=== PATIENT | male | born 1940 | race Caucasian/White ===

== ENCOUNTER 2017-10-22 14:09 | Emergency (ER) | payer MEDICARE ==
[2017-10-22 14:16] VITALS: BP 146/78
[2017-10-22] MEDS ORDERED: Eye Irrigation Solution 30 ML BOTTLE RIGHT EYE ONE (14:56)
[2017-10-22] MEDS ORDERED: Fluorescein Sod TOPICAL 0.6* 0.6 MG TEST OPHTHALMIC ONE (14:56)
--- NOTE | 2017-10-22 15:01 | UC ---
Eye Complaint HPI - HPI Summary HPI Summary: Woke today with R eye redness and soreness. Denies any known injury or FB, feels pain in the medial portion of eye. Lots of foul discharge. - History of Current Complaint Chief Complaint: UCEye Stated Complaint: EYE COMPLAINT Time Seen by Provider: 10/22/17 14:43 Hx Obtained From: Patient Onset/Duration: Gradual Onset Timing: Constant Severity Initially: Mild Severity Currently: Mild Pain Intensity: 5 Location of Injury: Conjunctiva Character: Dull, Throbbing, Foreign Body Sensation Aggravating Factor(s): Nothing Associated Signs And Symptoms: Positive: Drainage (Purulent) Related History: Glaucoma, Other - hx cateract surgeries - Allergies/Home Medications Allergies/Adverse Reactions: Allergies Allergy/AdvReac Type Severity Reaction Status Date / Time atenolol Allergy See Comment Verified 10/22/17 14:17 PMH/Surg Hx/FS Hx/Imm Hx Cardiovascular History: Hypertension - Surgical History Surgical History: Yes Surgery Procedure, Year, and Place: broken ankle LEFT REPAIR 2001-NO METAL. IN ANKLE LEFT 1995. CATARACTS BILATERAL EYES 09/2014-LASER TO REMOVE SCAR TISSUE AND 08/12/15. ANGIOPLASTY- NO CARDIAC STENTS - Family History Known Family History: Negative: Blood Disorder - Social History Occupation: Retired Lives: With Family Alcohol Use: Daily Alcohol Amount: 2-3 BEERS/NIGHT Substance Use Type: None Smoking Status (MU): Former Smoker Amount Used/How Often: 2 PPD X 25 YEARS Have You Smoked in the Last Year: No When Did the Patient Quit Smoking/Using Tobacco: 30 + YEARS AGO Review of Systems Constitutional: Negative Skin: Negative Eyes: Drainage, Eye Redness ENT: Negative Respiratory: Negative Cardiovascular: Negative Gastrointestinal: Negative Genitourinary: Negative Motor: Negative Neurovascular: Negative Musculoskeletal: Negative Neurological: Negative Psychological: Negative Is Patient Immunocompromised?: No All Other Systems Reviewed And Are Negative: Yes Physical Exam Triage Information Reviewed: Yes Appearance: Well-Appearing, Well-Nourished Vital Signs: Initial Vital Signs Temp 98.4 F 10/22/17 14:14 Pulse 98 10/22/17 14:14 Resp 18 10/22/17 14:14 BP 146/78 10/22/17 14:14 Pulse Ox 98 10/22/17 14:14 Vital Signs Reviewed: Yes Eye Exam: Other - PERRL Eyes: Positive: Conjunctiva Inflamed - R, Discharge - R - purulent, recurs after wiping away., Other: - Fluorescein dye negative for focal uptake in R eye ENT Exam: Normal ENT: Positive: Normal ENT inspection, Hearing grossly normal, Pharynx normal, Nasal drainage Dental Exam: Normal Neck exam: Normal Neck: Positive: Supple, Nontender, No Lymphadenopathy Respiratory Exam: Normal Respiratory: Positive: Chest non-tender, Lungs clear, Normal breath sounds, No respiratory distress, No accessory muscle use Cardiovascular Exam: Normal Cardiovascular: Positive: RRR, No Murmur Musculoskeletal Exam: Normal Neurological Exam: Normal Neurological: Positive: Alert Psychological Exam: Normal Skin Exam: Normal Eye Complaint Course/Dx - Differential Dx/Diagnosis Provider Diagnoses: R eye conjunctivitis Discharge - Sign-Out/Discharge Documenting (check all that apply): Discharge/Admit/Transfer - Discharge Plan Condition: Stable Disposition: HOME Prescriptions: Ciprofloxacin 0.3% OPTH.ROGER* [Cipro 0.3% Opth*] 2 drop RIGHT EYE Q4H #5 ml Patient Education Materials: Conjunctivitis (ED) Referrals: Catie Ingram MD [Primary Care Provider] - William Snell MD [Medical Doctor] - 4 Days Additional Instructions: I expect you to start to see improvement soon, and you should get better from day to day. If not, you will need to see your chef de partie for a recheck this week. - Billing Disposition and Condition Condition: STABLE Disposition: Home
== END 2017-10-22 15:20 | disposition home or self-care (01) ==
LOC: UCEAST 14:09
DX: H10.31 Unspecified acute conjunctivitis, right eye (principal); I10 Essential (primary) hypertension; Z88.8 Allergy status to other drugs, medicaments and biological substances; Z87.891 Personal history of nicotine dependence
CPT/HCPCS: 99212; G0463

== ENCOUNTER 2019-06-26 12:15 | Emergency (ER) | payer MEDICARE ==
--- OUTSIDE RECORDS SUMMARY | 2019-06-26 12:24 | XMS REPORT | Continuity of Care Document ---
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 Onset: 05/22/2013 Nuclear senile cataract William Snell M.D. Onset: 05/22/2013 Open-angle glaucoma William Snell M.D. Onset: 05/22/2013 Status Post Surgery William Snell M.D. Onset: 09/17/2014 Lens Replaced By Other Means Donovan Armendariz O.D. Onset: 09/26/2014 Tear film insufficiency Mihaela Levin O.D. Onset: 11/11/2014 Ulcerative blepharitis Mihaela Levin O.D. Onset: 11/11/2014 Primary open-angle glaucoma, mild stage Donovan Armendariz O.D. Onset: 2014 Keratoconjunctivitis sicca (excluding Sjogren Donovan Armendariz O.D. Onset: syndrome) Other secondary cataract, bilateral Donovan Armendariz O.D. Onset: 08/04/2015 Other secondary cataract, left eye William Snell M.D. Onset: 08/12/2015 Convalescence after surgery William Snell M.D. Onset: 08/27/2015 Excess skin of eyelid Donovan Armendariz O.D. Onset: 09/03/2015 Presence of intraocular lens Donovan Armendariz O.D. Onset: 09/03/2015 Bilateral primary open angle glaucoma William Snell M.D. Onset: 03/21/2016 Bilateral primary open angle glaucoma Donovan Ceballos, OD Onset: 04/28/2016 Keratoconjunctivitis sicca (excluding Sjogren Donovan Ceballos, OD Onset: 2018 syndrome) Social History Type Date Description Comments Sex Unknown ETOH Use Consumes 1-2 beers per day Tobacco Use Start: Unknown End: Unknown Patient is a former smoker Smoking Status Reviewed: 06/20/19 Patient is a former smoker Allergies, Adverse Reactions, Alerts Active Allergies Reaction Severity Comments Date Atenolol 05/22/2013 Brimonidine Tartrate 05/06/2019 Medications Active Medications SIG Qnty Indications Ordering Provider Date Latanoprost Place One Drop 7.5units Donovan Ceballos, OD 04/03/2018 0.005% Into Both Eyes Solution AT Bedtime Refresh Optive 1 drops both 30units Donovan Ceballos, OD 10/30/2017 Sensitive eyes tid OU 0.5-0.9% Solution Vitamin D William Snell, 05/22/2013 M.Beatris Aspir-[address] One A Day Vitamin Unknown Tablets Calcium Unknown Tablets Ramipril Unknown 2.5mg Capsules Bupropion HCL ER Unknown (XL) 300mg Tablets ER 24HR Fish Oil Unknown 500mg Capsules Vitamin B-12 Unknown Natural 500mcg Tablets Coq-10 Unknown 150mg Capsules History Medications Simbrinza one drop twice a 8ml Donovan Ceballos, OD 04/24/2019 - 1-0.2% day both eyes 05/06/2019 Suspension Restasis one drop twice 60units Donovan Ceballos, OD 02/11/2019 - 0.05% Emulsion per day both 04/17/2019 eyes Xiidra 1gtt both eyes 60units Donovan Ceballos, OD 01/08/2019 - 5% Solution twice a day 02/11/2019 Immunizations Description No Information Available Vital Signs Date Vital Result Comment 06/20/2019 9:23am Intraocular Pressure Right Eye 17 mmHg Intraocular Pressure Left Eye 19 mmHg 06/06/2019 11:26am Intraocular Pressure Right Eye 22 mmHg Intraocular Pressure Left Eye 21 mmHg Results Description No Information Available Procedures Date Code Description Status 06/20/2019 10608 Eye Exam Est Intermediate Completed 04/24/2019 08989 Visual Field Exam Extended, Unilateral Or Bilateral Completed 04/24/2019 40590 Eye Exam Est Intermediate Completed 04/17/2019 39714 Eye Exam Est Intermediate Completed 01/08/2019 77991 Fundus Photography W/Interpretation & Report Completed 01/08/2019 10425 Ophthalmoscopy Subsequent Completed 01/08/2019 92358 Refraction Completed 01/08/2019 11451 Eye Exam Est Comprehensive Completed Medical Devices Description No Information Available Encounters Type Date Location Provider Dx Diagnosis Office Visit 06/06/2019 Main Office Donovan Ceballos, OD H40.1131 Primary open-angle 11:15a glaucoma, bilateral, mild stage Office Visit 05/06/2019 Main Office Donovan Ceballos, OD H40.1131 Primary open-angle 3:00p glaucoma, bilateral, mild stage H04.123 Dry eye syndrome of bilateral lacrimal glands Office Visit 02/11/2019 9:30a Main Office Donovan Ceballos, Z96.1 Presence of OD intraocular lens H40.1131 Primary open-angle glaucoma, bilateral, mild stage H16.223 Keratoconjunct sicca, not specified as Sjogren's, bilateral Assessments Date Code Description Provider 06/20/2019 H40.1131 Primary open-angle glaucoma, bilateral, mild Donovan Ceballos, OD stage 06/06/2019 H40.1131 Primary open-angle glaucoma, bilateral, mild Donovan Ceballos, OD stage 05/06/2019 H40.1131 Primary open-angle glaucoma, bilateral, mild Donovan Ceballos, OD stage 05/06/2019 H04.123 Dry eye syndrome of bilateral lacrimal glands Donovan Ceballos, OD 04/24/2019 H40.1131 Primary open-angle glaucoma, bilateral, mild Donovan Ceballos, OD stage 04/17/2019 H16.223 Keratoconjunctivitis sicca, not specified as Donovan Ceballos, OD Sjogren's, bilateral 04/17/2019 H40.1131 Primary open-angle glaucoma, bilateral, mild Donovan Ceballos, OD stage 02/11/2019 Z96.1 Presence of intraocular lens Donovan Ceballos, OD 02/11/2019 H40.1131 Primary open-angle glaucoma, bilateral, mild Donovan Ceballos, OD stage 02/11/2019 H16.223 Keratoconjunctivitis sicca, not specified as Donovan Ceballos, OD Sjogren's, bilateral 01/08/2019 Z96.1 Presence of intraocular lens Donovan Ceballos, OD 01/08/2019 H04.123 Dry eye syndrome of bilateral lacrimal glands Donovan Ceballos, OD 01/08/2019 H43.813 Vitreous degeneration, bilateral Donovan Ceballos, OD 01/08/2019 H40.1131 Primary open-angle glaucoma, bilateral, mild Donovan Ceballos, OD stage Plan of Treatment Future Appointment(s):07/26/2019 10:45 am - Donovan Ceballos, ELIZABETH at [id number] - Donovan Ceballos ODH40.1131 Primary open-angle glaucoma, bilateral, mild stageFollow up:10/2019 nerve OCT, sooner PRN Functional Status Description No Information Available Mental Status Description No Information Available Referrals Description No Information Available
--- OUTSIDE RECORDS SUMMARY | 2019-06-26 12:24 | XMS REPORT | Continuity of Care Document ---
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 Medicine Problems Active Problems Provider Date Essential [...] is a former smoker Smoking Status Reviewed: 06/06/19 Patient is a former smoker Allergies, Adverse [...] Available Vital Signs Date Vital Result Comment 06/06/2019 11:26am Intraocular Pressure Right Eye 22 mmHg Intraocular Pressure Left Eye 21 mmHg 05/06/2019 3:10pm Intraocular Pressure Right Eye 25 mmHg Intraocular Pressure Left Eye 25 mmHg Results Description No Information Available Procedures Date Code Description Status 04/24/2019 09438 Visual Field Exam Extended, Unilateral Or Bilateral Completed 04/24/2019 06563 Eye Exam Est Intermediate Completed 04/17/2019 19053 Eye Exam Est Intermediate Completed 01/08/2019 46444 Fundus Photography W/Interpretation & Report Completed 01/08/2019 79923 Ophthalmoscopy Subsequent Completed 01/08/2019 00778 Refraction Completed 01/08/2019 80406 Eye Exam Est Comprehensive Completed Medical Devices [...] Sjogren's, bilateral Assessments Date Code Description Provider 06/06/2019 H40.1131 Primary open-angle glaucoma, bilateral, mild [...] am - Donovan Ceballos, EL[facility]ABETH at [id number] - Donovan Ceballos ODH40.1131 Primary open-angle glaucoma, bilateral, mild stage Functional Status Description No Information Available Mental Status Description No Information Available Referrals Description No Information Available
--- OUTSIDE RECORDS SUMMARY | 2019-06-26 12:24 | XMS REPORT | Continuity of Care Document ---
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 Onset: 05/22/2013 Nuclear senile cataract William [...] is a former smoker Smoking Status Reviewed: 05/06/19 Patient is a former smoker Allergies, Adverse [...] Available Vital Signs Date Vital Result Comment 05/06/2019 3:10pm Intraocular Pressure Right Eye 25 mmHg Intraocular Pressure Left Eye 25 mmHg 04/17/2019 3:23pm Intraocular Pressure Right Eye 23 mmHg Intraocular Pressure Left Eye 25 mmHg Results Description No Information Available Procedures Date Code Description Status 04/24/2019 22877 Visual Field Exam Extended, Unilateral Or Bilateral Completed 04/24/2019 25450 Eye Exam Est Intermediate Completed 04/17/2019 44940 Eye Exam Est Intermediate Completed 01/08/2019 85061 Fundus Photography W/Interpretation & Report Completed 01/08/2019 37407 Ophthalmoscopy Subsequent Completed 01/08/2019 25590 Refraction Completed 01/08/2019 12488 Eye Exam Est Comprehensive Completed Medical Devices Description No Information Available Encounters Type Date Location Provider Dx Diagnosis Office Visit 05/06/2019 Main Office Donovan Ceballos, OD H40.1131 Primary open-angle 3:00p glaucoma, bilateral, mild stage H04.123 Dry eye syndrome of bilateral lacrimal glands Office Visit 02/11/2019 9:30a Main Office Donovan Ceballos, Z96.1 Presence of OD intraocular lens H40.1131 Primary open-angle glaucoma, bilateral, mild stage H16.223 Keratoconjunct sicca, not specified as Sjogren's, bilateral Assessments Date Code Description Provider 05/06/2019 H40.1131 Primary open-angle glaucoma, bilateral, mild Donovan Ceballos, OD stage 05/06/2019 H04.123 Dry eye syndrome of bilateral lacrimal glands Donovan Ceballos, OD 04/24/2019 H40.1131 Primary open-angle glaucoma, bilateral, mild Donovan Ceballos, OD stage 04/17/2019 H16.223 Keratoconjunctivitis sicca, not specified as Donovan Tucker, OD Sjogren's, bilateral 04/17/2019 H40.1131 Primary open-angle [...] Ceballos, OD stage Plan of Treatment Future Appointment(s):06/06/2019 11:15 am - Donovan Ceballos, OD at [id number] 10:45 am - Donovan Ceballos, OD at [id number]/06/2019 - Donovan Ceballos ODH40.1131 Primary open-angle glaucoma, bilateral, mild fsmysG95.123 Dry eye syndrome of bilateral lacrimal glands Functional Status Description No Information Available Mental Status Description No Information Available Referrals Description No Information Available
[2019-06-26 12:42] VITALS: BP 174/72
--- NOTE | 2019-06-26 13:15 | UC ---
Cardiac HPI - HPI Summary HPI Summary: Pt is a 78 yo male presents to reporting sob with activity over last 2 days. Pt states has been remodeling a kitchen - states with sx gets sob. with walking , pt with left sided cp - no radiation. Pt states at present no complaint. Pt came for "reassurance" no current complaint.s no trauma, no radiation. states was nausea with pain earlier. no analgesia taken. Pt has not had recent stress test. + history of angioplasty several years ago. 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 reviewed this visit - History of Current Complaint Chief Complaint: UCChestPain Stated Complaint: SHORTNESS OF BREATH & CHEST PAIN Time Seen by Provider: 06/26/19 12:26 Hx Obtained From: Patient, Medical Records Pain Intensity: 0 - Allergy/Home Medications Allergies/Adverse Reactions: Allergies Allergy/AdvReac Type Severity Reaction Status Date / Time atenolol Allergy See Comment Verified 06/26/19 12:42 Home Medications: Home Medications Aspirin 81 mg CHEW TAB* 81 mg PO DAILY 06/25/12 [History Confirmed 06/26/19] Multivitamin [Multivitamins] 1 cap PO DAILY 06/25/12 [History Confirmed 06/26/19 ] Ramipril CAP* [Altace CAP*] 2.5 mg PO DAILY 09/09/14 [History Confirmed 06/26/19 ] [place]-3/Dha/Epa/Fish Oil [Fish Oil 1,000 mg Softgel] 1,200 unit PO BID 02/01/16 [History Confirmed 06/26/19] Dorzolamide 2% OPTH (NF) [Trusopt 2% OPTH (NF)] 1 drop BOTH EYES BID 03/01/16 [ History Confirmed 06/26/19] Ascorbic Acid TAB* [Vitamin C TAB*] 500 mg PO DAILY 06/26/19 [History Confirmed 06/26/19] Atorvastatin* [Lipitor*] 20 mg PO DAILY 06/26/19 [History Confirmed 06/26/19] BuPROPion XL* [Bupropion XL*] 300 mg PO DAILY 06/26/19 [History Confirmed ] Cholecalciferol TAB* [Vitamin D TAB*] 1,000 units PO DAILY 06/26/19 [History Confirmed 06/26/19] Cyanocobalamin (Vitamin B-12) [Vitamin B-12] 1,000 mg PO DAILY 06/26/19 [ History Confirmed 06/26/19] Latanoprostene Bunod [Vyzulta] 1 drop BOTH EYES BEDTIME 06/26/19 [History Confirmed 06/26/19] Metoprolol Succinate XL TAB* [Toprol XL TAB*] 25 mg PO DAILY 30 Days #30 tab.xl 06/26/19 [Rx] PMH/Surg Hx/FS Hx/Imm Hx Previously Healthy: Yes Endocrine History: Dyslipidemia Cardiovascular History: Cardiac Disease, Hypertension - Surgical History Surgical History: Yes Surgery Procedure, Year, and Place: broken ankle LEFT REPAIR 2001-NO METAL. IN ANKLE LEFT 1995. CATARACTS BILATERAL EYES 09/2014-LASER TO REMOVE SCAR TISSUE AND 08/12/15. ANGIOPLASTY- NO CARDIAC STENTS, right knee - Family History Known Family History: Positive: Hypertension Negative: Blood Disorder - Social History Occupation: Retired Lives: With Family Alcohol Use: Daily Alcohol Amount: 2-3 BEERS/NIGHT Substance Use Type: None Smoking Status (MU): Former Smoker Amount Used/How Often: 2 PPD X 25 YEARS Have You Smoked in the Last Year: No When Did the Patient Quit Smoking/Using Tobacco: 30 + YEARS AGO Review of Systems All Other Systems Reviewed And Are Negative: Yes Respiratory: Positive: Shortness Of Breath - with exertion Cardiovascular: Positive: Chest Pain - resolved Gastrointestinal: Positive: Nausea - with cp Physical Exam - Summary Physical Exam Summary: Vital Signs Reviewed: Yes A+Ox3, no distress Eyes: Conjunctiva Clear, LAYLA. EOM intact and full ENT: Hearing grossly normal TM x 2 clear, mmoist, uvula midline, no exudate, no erythema Neck: Positive: Supple Respiratory: Positive: No respiratory distress, No accessory muscle use + CTA throughout no w/r Cardiovascular: RRR nl s1, s2 no m/r CBT <2 sec, no bruits, not reproducible abd soft + BS nt/nd no guarding, no distension Musculoskeletal Exam: CLARK x 4 without difficulty Strength Intact, ROM Intact Neurological: Positive: Alert, + sensation throughout Psychological: Positive: Normal Response To cooker sulfite Skin: Positive: no rash, no ecchymosis Triage Information Reviewed: Yes Vital Signs: Initial Vital Signs Temp 98.3 F 06/26/19 12:27 Pulse 95 06/26/19 12:27 Resp 20 06/26/19 12:27 BP 174/72 02/19/20 12:27 Pulse Ox 98 06/26/19 12:27 Diagnostics - EKG Cardiac Rate: NL Cardiac Rhythm: Sinus: Normal Ectopy: None ST Segment: Normal EKG Comparison: No Significant Change - compared 11/06/08 - Assessment/Plan Course Of Treatment: Pt presents with intermittent with acitivity. Today with left sided CP - resolve.d no current co Pt with h/o angioplasty years ago Vital reviewed non concerning exam EKG no STEMI d/w pt - recommend ASA and transfer by EMS to ED after discussion - pt in agreement per pt's requested - contact [employer] where was - updated her - she will come to and get car - pt's keys left at desk she will met him at ED Pt updated and comfortable with plan report to ED - Clinical Impression Provider Diagnosis: Chest pain Discharge ED - Sign-Out/Discharge Documenting (check all that apply): Patient Departure All imaging exams completed and their final reports reviewed: No Studies - Discharge Plan Condition: Stable Disposition: TRANS HIGHER LVL OF CARE FAC Referrals: Maria Victoria Blanchard NP [Primary Care Provider] - - Billing Disposition and Condition Condition: STABLE Disposition: Trans Higher Lvl of Care Fac
[2019-06-26] MEDS ORDERED: Aspirin 81 mg CHEW TAB* 81 MG TAB.CHEW PO ONE (13:21)
[2019-06-27] MEDS ORDERED: Aspirin 81 mg CHEW TAB* 81 MG TAB.CHEW PO ONE (13:12)
== END 2019-06-26 13:50 | disposition short-term general hospital (02) ==
LOC: UCEAST 12:15
DX: R07.89 Other chest pain (principal); R06.02 Shortness of breath; R11.0 Nausea; E78.5 Hyperlipidemia, unspecified; I11.9 Hypertensive heart disease without heart failure; Z79.82 Long term (current) use of aspirin; Z88.8 Allergy status to other drugs, medicaments and biological substances; Z87.891 Personal history of nicotine dependence
CPT/HCPCS: 99213; A9270-GY; G0463

== ENCOUNTER 2019-06-26 14:04 | Emergency (ER) | payer MEDICARE ==
--- NOTE | 2019-06-26 14:30 | ED ---
HPI Chest Pain - HPI Summary HPI Summary: This pt is a 78 Y/O M presenting [facility] accompanied by his with a CC of CP and SOB since 06/22/2019. He states that the pain has been intermittent and the SOB comes on after light exertion. He states that he has been fatigued for the past week. He denies any coughing, headaches, fevers, chills, N/V, and diaphoresis. He states that he hasnt had a recent stress test. He has a PMHx of HTN and an angioplasty. He states that he has no alleviating factors. Follows w Dr. Castillo. - History of Current Complaint Chief Complaint: EDChestPainROMI Time Seen by Provider: 06/26/19 14:12 Hx Obtained From: Patient Onset/Duration: Started Days Ago - 4, Still Present Timing: Intermittent Initial Severity: Mild Current Severity: None Pain Intensity: 0 Pain Scale Used: 0-10 Numeric Chest Pain Location: Left Anterior Chest Pain Radiates: No Aggravating Factor(s): Exertion Alleviating Factor(s): Nothing Associated Signs and Symptoms: Positive: Chest Pain, Shortness of Breath. Negative: Headaches, Fever, Chills, Nausea, Cough, Vomiting - Allergy/Home Medications Allergies/Adverse Reactions: Allergies Allergy/AdvReac Type Severity Reaction Status Date / Time atenolol Allergy See Comment Verified 06/26/19 12:42 Home Medications: Home Medications Aspirin 81 mg CHEW TAB* 81 mg PO DAILY 06/25/12 [History Confirmed 06/26/19] Multivitamin [Multivitamins] 1 cap PO DAILY 06/25/12 [History Confirmed 06/26/19 ] Ramipril CAP* [Altace CAP*] 2.5 mg PO DAILY 09/09/14 [History Confirmed 06/26/19 ] [place]-3/Dha/Epa/Fish Oil [Fish Oil 1,000 mg Softgel] 1,200 unit PO BID 02/01/16 [History Confirmed 06/26/19] Dorzolamide 2% OPTH (NF) [Trusopt 2% OPTH (NF)] 1 drop BOTH EYES BID 03/01/16 [ History Confirmed 06/26/19] Ascorbic Acid TAB* [Vitamin C TAB*] 500 mg PO DAILY 06/26/19 [History Confirmed 06/26/19] Atorvastatin* [Lipitor*] 20 mg PO DAILY 06/26/19 [History Confirmed 06/26/19] BuPROPion XL* [Bupropion XL*] 300 mg PO DAILY 06/26/19 [History Confirmed ] Cholecalciferol TAB* [Vitamin D TAB*] 1,000 units PO DAILY 06/26/19 [History Confirmed 06/26/19] Cyanocobalamin (Vitamin B-12) [Vitamin B-12] 1,000 mg PO DAILY 06/26/19 [ History Confirmed 06/26/19] Latanoprostene Bunod [Vyzulta] 1 drop BOTH EYES BEDTIME 06/26/19 [History Confirmed 06/26/19] Metoprolol Succinate XL TAB* [Toprol XL TAB*] 25 mg PO DAILY 30 Days #30 tab.xl 06/26/19 [Rx] PMH/Surg Hx/FS Hx/Imm Hx Previously Healthy: Yes Endocrine/Hematology History: Denies: Hx Diabetes Cardiovascular History: Reports: Hx Hypertension, Other Cardiovascular Problems/ Disorders - ANGIOPLASTY Denies: Hx Pacemaker/ICD Respiratory History: Reports: Hx Sleep Apnea History: Reports: Hx Kidney Stones - RESOLVED, Other Problems/Disorders - ENLARGED PROSTATE Denies: Hx Renal Disease Musculoskeletal History: Reports: Hx Arthritis, Other Musculoskeletal History - neck pain Sensory History: Reports: Hx Cataracts - BILATERAL, Hx Contacts or Glasses - READING, Hx Glaucoma, Hx Hearing Aid - BILAT, Hx Hearing Problem Opthamlomology History: Reports: Hx Cataracts - BILATERAL, Hx Contacts or Glasses - READING, Hx Glaucoma Psychiatric History: Reports: Hx Anxiety - MEDS, Hx Depression Denies: Hx Panic Disorder - Cancer History Hx Chemotherapy: No Hx Radiation Therapy: No - Surgical History Surgical History: Yes Surgery Procedure, Year, and Place: broken ankle LEFT REPAIR 2001-NO METAL. IN ANKLE LEFT 1995. CATARACTS BILATERAL EYES 09/2014-LASER TO REMOVE SCAR TISSUE AND 08/12/15. ANGIOPLASTY- NO CARDIAC STENTS, right knee Hx Anesthesia Reactions: No - Immunization History Date of Tetanus Vaccine: Unk Date of Influenza Vaccine: Fall 2012 Immunizations Up to Date: Yes Infectious Disease History: No Infectious Disease History: Denies: Traveled Outside the [place] in Last 30 Days - Family History Known Family History: Negative: Blood Disorder - Social History Occupation: Retired Lives: With Family Alcohol Use: Daily Alcohol Amount: 2-3 BEERS/NIGHT Hx Substance Use: No Substance Use Type: Reports: None Hx Tobacco Use: Yes Smoking Status (MU): Former Smoker Amount Used/How Often: 2 PPD X 25 YEARS Have You Smoked in the Last Year: No Review of Systems Negative: Fever, Chills, Skin Diaphoresis Positive: Chest Pain Positive: Shortness Of Breath. Negative: Cough Negative: Vomiting, Nausea Negative: Headache All Other Systems Reviewed And Are Negative: Yes Physical Exam - Summary Physical Exam Summary: Constitutional: Well-developed, Well-nourished, Alert. (-) Distressed Skin: Warm, Dry HENT: Normocephalic; Atraumatic Eyes: Conjunctiva normal Neck: Musculoskeletal ROM normal neck. (-) JVD, (-) Stridor, (-) Nuchal rigidity Cardio: Rhythm regular, rate normal, Heart sounds normal; Intact distal pulses; Radial pulses are 2+ and symmetric. (-) Murmur Pulmonary/Chest wall: Effort normal. (-) Respiratory distress, (-) Wheezes, (-) Rales Abd: Soft, (-) tenderness, (-) Distension, (-) Guarding, (-) Rebound Musculoskeletal: (-) Edema Lymph: (-) Cervical adenopathy Neuro: Alert, Oriented x3 Psych: Mood and affect Normal Triage Information Reviewed: Yes Vital Signs On Initial Exam: Initial Vitals Temp Pulse Resp BP Pulse Ox 97.9 F 91 16 179/82 98 06/26/19 14:05 06/26/19 14:05 06/26/19 14:05 06/26/19 14:05 06/26/19 14:05 Vital Signs Reviewed: Yes Procedures - Sedation Patient Received Moderate/Deep Sedation with Procedure: No Diagnostics - Vital Signs Vital Signs Temp Pulse Resp BP Pulse Ox 06/26/19 14:10 90 06/26/19 14:09 16 06/26/19 14:05 97.9 F 91 16 179/82 98 - Laboratory Result Diagrams: 06/26/19 15:16 06/26/19 15:16 Lab Statement: Any lab studies that have been ordered have been reviewed, and results considered in the medical decision making process. - Radiology CXR Radiology Interpretation Completed By: Radiologist Summary of Radiographic Findings: No evidence of cardiopulmonary disease. ED physician has reviewed this report. - EKG 1413 Cardiac Rate: NL - 83 BPM EKG Rhythm: Sinus Rhythm Summary of EKG Findings: An EKG at 1413 reveals normal sinus rhythm at 83 BPMS, T wave inversions in leads aVL and V1-V2, nml axis, nml intervals. No STEMI. No acute changes from 2014. Interpreted by Dr. Fitzpatrick at 1428 06/26/2019. Re-Evaluation - Re-Evaluation First Eval Re-Evaluation Time: 16:00 Change: Improved - d/w patient labs, cardiology recommendations. Pending repeat trop Second Eval Re-Evaluation Time: 18:05 Change: Improved - 2nd trop neg, given metoprolol. Chest Pain Course/Dx - Course Course Of Treatment: 78 y/o male w hx HTN, angioplasty >20 years ago p/w intermittent CP and SOB. - VS hypertensive. well appearing, EKG unchanged, CXR neg. Initial troponin normal. Chest Pain DDX: The patient is well appearing, with stable vitals. Given the patient's clinical presentation, highest on differential is angina vs atypical CP. - d/w cardiology, who recommends 2nd trop and then to put on metoprolol. Will arrange outpatient stress test. Patient in agreement. Although less likely, differential also includes the following: --Pneumothorax: Equal breath sounds, story inconsistent since gradual onset of symptoms. CXR shows no evidence of pneumothorax. Unlikely. -- Cardiac tamponade: The history and physical are not concerning for tamponade. No Pulsus Paradoxus, no tachypnea. Unlikely. --Mediastinitis or esophageal rupture: The history is not consistent, as the patient has had no recent history of significant wretching, instrumentation, or mediastinal surgeries. Unlikely. --Aortic dissection: The patient does not describe the classical tearing chest pain radiating into the back, and the CXR does not show mediastinal widening or other signs of aortic dissection. Unlikely. --PE: Vitals wnl (not hypoxic, tachycardic or tachypneic) - Diagnoses Provider Diagnoses: Chest pain, HTN (hypertension) - Provider Notifications Discussed Care Of Patient With: Wendy Callejas Time Discussed With Above Provider: 16:00 Instructed by Provider To: Other - Dr. Callejas, Carldiologist, recommends a second Troponin and begin 25mgs metropolol. Her office will schedule out patient care for a stress test. Admit/Transition Orders Completed By ED Provider: Yes Discharge ED - Sign-Out/Discharge Documenting (check all that apply): Patient Departure - discharge - Discharge Plan Condition: Stable Disposition: HOME Prescriptions: Metoprolol Succinate XL TAB* [Toprol XL TAB*] 25 mg PO DAILY 30 Days #30 tab.xl Patient Education Materials: Chest Pain (ED) Referrals: Maria Victoria Blanchard NP [Primary Care Provider] - Additional Instructions: You were seen in the emergency department for chest pain. Your EKG (heart tracing), labs and chest x-ray did not show any cause for pain. Please take metoprolol daily, you can check her blood pressure home, if the top number is lower than 110, you can stop taking her metoprolol.Important that you follow up with you primary care doctor in the next 1-2 days. cardiology should call you to schedule an outpatient stress test. Please return to the emergency department for continued chest pain, trouble breathing, passing out, or if you' re concerned. - Billing Disposition and Condition Condition: STABLE Disposition: Home - Attestation Statements Document Initiated by Giovani: Yes Documenting Scribe: Randall Whitman Provider For Whom Giovani is Documenting (Include Credential): Muriel Fitzpatrick MD Scribe Attestation: I, Randall Whitman, scribed for Muriel Fitzpatrick MD on 06/26/19 at 1811. Scribe Documentation Reviewed: Yes Provider Attestation: The documentation as recorded by the Randall hurst accurately reflects the service I personally performed and the decisions made by , Mureil Fitzpatrick MD Status of Scribe Document: Viewed
[2019-06-26 15:30] LABS: ABS Lymphocytes 0.8 10^3/ul (1.0-4.8); ABS Monocytes 0.5 10^3/ul (0-0.8); ABS Neutrophils 5.9 10^3/ul (1.5-7.7); Eosinophil % 0.5 %; Hematocrit 47 % (42-52); Hemoglobin 16.3 g/dL (14.0-18.0); Lymphocyte % 11.1 %; Mean Corpuscular HGB Conc 35 g/dL (31-36); Mean Corpuscular Hemoglobin 31 pg (27-31); Mean Corpuscular Volume 90 fL (80-94); Mean Platelet Volume 8.9 fL (7.4-10.4); Nucleated Red Blood Cells % 0.3; Platelet Count 163 10^3/uL (150-450); Red Blood Count 5.22 10^6 /uL (4.18-5.48); Red Cell Distribution Width 13 % (10-15); White Blood Count 7.2 10^3/uL (3.5-10.8)
[2019-06-26 15:51] LABS: Albumin 4.7 g/dL (3.2-5.2); Albumin/Globulin Ratio 1.8 (1-3); BUN/Creatinine Ratio 20.2 (8-20); Calcium 9.9 mg/dL (8.6-10.3); EGFR African American 79.4 (>60); EGFR Non-African American 65.6 (>60); Globulin 2.6 g/dL (2-4); Potassium 4.1 mmol/L (3.5-5.0); Total Bilirubin 0.6 mg/dL (0.2-1.0); Total Protein 7.3 g/dL (6.4-8.9)
[2019-06-26] MEDS ORDERED: NS 0.9% 1000 ML** 1,000 ML IV ONE (16:40)
[2019-06-26] MEDS ORDERED: Metoprolol Succinate XL TAB* 25 MG PO ONE (17:59)
[2019-06-26 18:17] VITALS: BP 154/81
== END 2019-06-26 18:16 | disposition home or self-care (01) ==
LOC: ED 14:04
DX: R07.9 Chest pain, unspecified (principal); I10 Essential (primary) hypertension; N40.0 Benign prostatic hyperplasia without lower urinary tract symptoms; F41.9 Anxiety disorder, unspecified; F32.9 Major depressive disorder, single episode, unspecified; Z87.442 Personal history of urinary calculi; Z87.891 Personal history of nicotine dependence; Z79.82 Long term (current) use of aspirin; Z79.899 Other long term (current) drug therapy; Z88.8 Allergy status to other drugs, medicaments and biological substances
CPT/HCPCS: 36415; 71046; 80053; 83880; 84484; 85025; 93005; 96360; 99283

== ENCOUNTER 2020-06-10 06:01 | Observation (INO) ==
[~2020-06-10 06:01] MED LIST: Buffered Lidocaine 1% SYRIN 1 ml INTRADERM ONE; Lactated Ringers 1000 ml BAG 1,000 ML IV SCH
[2020-06-10] MEDS ORDERED: cefTRIAXone 2 GM ADDV.VIAL ONE (06:34)
[2020-06-10] MEDS ORDERED: Glycopyrrolate IV 0.2 MG/ML 1 ML VIAL ONE ×2 (07:23→08:06)
[2020-06-10] MEDS ORDERED: Midazolam 2 mg/2 ml VIAL 1 mg/ml 2 ml VIAL (2 mg) ONE (07:25)
[2020-06-10] MEDS ORDERED: Morphine 10 MG/ML VIAL (1 ml) ONE (07:25)
[2020-06-10] MEDS ORDERED: Dexamethasone IV 4 MG/ML VIAL 1 ml VIAL ONE (08:06)
[2020-06-10] MEDS ORDERED: Propofol 10 MG/ML 20 ML BTL ONE (08:06)
[2020-06-10] MEDS ORDERED: Ondansetron 4 mg VIAL 2 MG/ML 2 ml VIAL ONE (08:06)
[2020-06-10] MEDS ORDERED: Metoclopramide 5 MG/ML VIAL (10 mg) ONE (08:06)
[2020-06-10] MEDS ORDERED: Lidocaine 2% PF 5 ML VIAL ONE (08:06)
[2020-06-10] MEDS ORDERED: Phenylephrine 40 mcg/mL 10mL (400mcg) SYRINGE ONE (08:06)
[2020-06-10] MEDS ORDERED: Naloxone 0.4 mg VIAL 0.4 mg/ml 1 ml VIAL IV PRN (08:24)
[2020-06-10] MEDS ORDERED: DiMENhydriNATE IV 50 mg/ml 1 ml VIAL IV PUSH PRN (08:24)
[2020-06-10] MEDS ORDERED: fentaNYL 100 mcg/2 ml 50 MCG/ML VIAL IV PRN (08:24)
[2020-06-10] MEDS ORDERED: HYDROmorphone 1 MG/1 ML SYRINGE IV PRN (08:24)
[2020-06-10] MEDS ORDERED: Ondansetron 4 mg VIAL 2 MG/ML 2 ml VIAL IV PRN (08:24)
[2020-06-10] MEDS ORDERED: Acetaminophen IV 1 GM/100ML 1,000 MG/100 ML VIAL IVPB ONE (08:24)
[2020-06-10] MEDS ORDERED: Metoprolol Tartrate 5 mg VIAL 5 ml VIAL (1 mg/ml) ONE (08:28)
[2020-06-10] MEDS ORDERED: oxyCODONE/Acetamin 5/325 mg TAB PO PRN (10:33)
[2020-06-10] MEDS ORDERED: Lidocaine 2% JELLY 6 ML TOPICAL PRN (10:34)
[2020-06-10] MEDS: NS 0.9% 1,000 ML IV SCH ×2 (10:44→17:38)
[2020-06-10] MEDS ORDERED: Albuterol HFA INHALER 8 gm MDI INH PRN (11:14)
[2020-06-10] MEDS ORDERED: Dextran 70/Hypromellose Tears Eye Drops 15 ml BTL (for Artificials Tears) OPHTHALMIC PRN (11:15)
[2020-06-10] MEDS ORDERED: Latanoprost 0.005% 2.5 ml BTL BOTH EYES SCH (21:00)
[2020-06-10] MEDS: CMCS: Dorzolamide 2% OPTH (NF) 10 ML BTL BOTH EYES SCH (22:15)
[2020-06-11] MEDS: NS 0.9% 1,000 ML IV SCH (01:45)
[2020-06-11 07:44] VITALS: BP 133/65
[2020-06-11] MEDS ORDERED: Vitamin THERAPEUTIC TAB PO SCH (09:00)
[2020-06-11] MEDS ORDERED: Fluticasone NASAL SPRAY 50MCG 16 gm SPRAY BTL INTRANASAL SCH (09:00)
[2020-06-11] MEDS: CMCS: Dorzolamide 2% OPTH (NF) 10 ML BTL BOTH EYES SCH ×2 (09:28→09:31)
== END 2020-06-11 10:45 | disposition home or self-care (01) ==
LOC: OR 06:01 → SSU 06:01
PROVIDERS: ADMIT Urology; ATTEND Urology

== ENCOUNTER 2023-10-23 10:07 | Observation (INO) ==
[2023-10-23] MEDS ORDERED: Chlorhexidine MOUTHWASH 0.12% 15 ML UDC ONE (10:43)
[2023-10-23] MEDS ORDERED: ceFAZolin 2 GM in NS PREMIX 2 GM/100 ML BAG IVPB ONE (11:01)
[2023-10-23 11:04] LABS: Rapid COVID-19 Molecular Undetected (Undetected)
[2023-10-23] MEDS ORDERED: Dexamethasone IV 4 MG/ML VIAL 1 ml VIAL ONE (11:12)
[2023-10-23] MEDS ORDERED: Rocuronium 50 mg VIAL 10 mg/ml 5 ml VIAL (50 mg) ONE (11:12)
[2023-10-23] MEDS ORDERED: Propofol 10 MG/ML 20 ML BTL ONE (11:12)
[2023-10-23] MEDS ORDERED: fentaNYL 250 mcg/5 ml 50 MCG/ML 5 ml VIAL (250 MCG) ONE (11:12)
[2023-10-23] MEDS ORDERED: Lidocaine 2% PF 5 ML VIAL ONE (11:12)
[2023-10-23] MEDS ORDERED: Ondansetron 4 mg VIAL 2 MG/ML 2 ml VIAL ONE (11:12)
[2023-10-23] MEDS ORDERED: Lidocaine 1% w EPI 1:100,000 MDV 20 ML VIAL ONE (13:15)
[2023-10-23] MEDS ORDERED: Thrombin 5,000 UNITS 1 APPLIC KIT - topical use - TOPICAL ONE (13:15)
[2023-10-23] MEDS ORDERED: Gelfoam Sponge SIZE 100 SPONGE ONE (13:16)
[2023-10-23] MEDS ORDERED: ceFAZolin VIAL VIAL ONE (13:16)
[2023-10-23] MEDS ORDERED: Lidocaine 1% w EPI 1:200,000 SDV 30 ML VIAL ONE (13:27)
[2023-10-23] MEDS ORDERED: Acetaminophen IV 1 GM/100ML 1,000 MG/100 ML BAG IV ONE (14:02)
[2023-10-23] MEDS ORDERED: Phenylephrine 40 mcg/mL 10mL (400mcg) SYRINGE ONE (14:26)
[2023-10-23] MEDS ORDERED: Dextran 70/Hypromellose Tears Eye Drops 15 ml BTL (for Artificials Tears) BOTH EYES PRN (15:46)
[2023-10-23] MEDS ORDERED: Phenol 1.4% Throat Spray BTL MT PRN (15:46)
[2023-10-23] MEDS ORDERED: Benzocaine/Menthol LOZ MT PRN (15:46)
[2023-10-23] MEDS ORDERED: Morphine 2 MG/ML SYRINGE IV PRN (15:46)
[2023-10-23] MEDS ORDERED: Ondansetron 4 mg VIAL 2 MG/ML 2 ml VIAL IV PRN (15:46)
[2023-10-23] MEDS ORDERED: Calcium Carb (TUMS) 500 mg CHEW TAB PO PRN (15:46)
[2023-10-23] MEDS: PTO:Dorzolamide 2% OPTH (NF) 10 ML BTL BOTH EYES SCH (21:26)
[2023-10-23] MEDS: Lactated Ringers 1000 ml BAG 1,000 ML IV SCH (21:47)
[2023-10-24] MEDS: Fluticasone NASAL SPRAY 50MCG 16 gm SPRAY BTL INTRANASAL SCH (08:12)
[2023-10-24 09:54] VITALS: BP 115/54
== END 2023-10-24 10:53 | disposition home or self-care (01) ==
LOC: SSU 10:07 → OR 10:07
PROVIDERS: ADMIT Neurological Surgery; ATTEND Neurological Surgery